=== PATIENT | male | born 1930 | race Caucasian/White ===

== ENCOUNTER → 2016-09-23 | Outpatient (CLI) | payer MEDICARE, OTHER ==
[~2016-09-23] MED LIST: AMLO5TAB2 PO; AMLO5TAB22 PO; CALC500T19 PO; CARV6.25 PO; CARV6.252 PO; GABA100C4 PO; LEVO.075 PO; MULTTAB23 PO; NEXI40CA PO; OMEG300C PO; PANT40TA3 PO; PRAV20 PO; PRAV40TA2 PO; PROB1TAB P-ARTICULR; SYNT75TA PO; TERA5 PO; TERA5CAP3 PO; VITA20003 PO
[2016-09-23 12:27] LABS: ALKALINE PHOSPHATASE 73 U/L (45-117); ALT (GPT) 16 U/L (12-78); ANION GAP 9 MEQ/L (5-15); AST (GOT) 8 U/L (15-37); BICARBONATE 27.6 MEQ/L (21.0-32.0); BLOOD UREA NITROGEN 17 MG/DL (7-18); CHLORIDE 104 MEQ/L (98-107); GLOMERULAR FILTRATION RATE 73 ML/MIN (>89); GLUCOSE,FASTING 126 MG/DL (74-99); LDL CHOLESTEROL 67 MG/DL (0-99); POTASSIUM 4.2 MEQ/L (3.5-5.1); SODIUM (NA) 141 MEQ/L (136-145); TOTAL BILIRUBIN ADULT 0.5 MG/DL (0.2-1.0)
[2016-09-23 12:41] LABS: CREATINE KINASE 43 U/L (39-308)
== END ==
LOC: ELAB 10:45
PROVIDERS: ATTEND Internal Medicine Interventional Cardiology
DX: R06.02 Shortness of breath (principal); E78.5 Hyperlipidemia, unspecified; Z79.899 Other long term (current) drug therapy; Z09 Encounter for follow-up examination after completed treatment for conditions other than malignant neoplasm
CPT/HCPCS: 36415; 80053; 80061; 82248; 82550

== ENCOUNTER → 2016-09-27 | Outpatient (CLI) | payer MEDICARE | LOC: ELAB 10:14 | PROVIDERS: ATTEND Urology | DX: Z85.46 Personal history of malignant neoplasm of prostate (principal) | CPT/HCPCS: 36415; 84153 ==

== ENCOUNTER 2016-10-08 16:38 | Emergency (ER) | payer MEDICARE, OTHER ==
[~2016-10-08] VITALS: Ht 172.7 cm; Wt 75.0 kg
[~2016-10-08 16:38] MED LIST changes: -AMLO5TAB2 PO; -CARV6.252 PO; -LEVO.075 PO; -PANT40TA3 PO; -PRAV40TA2 PO; -TERA5CAP3 PO
[2016-10-08 16:51] VITALS: BP 149/72; PULSE 61; RESP 16; TEMP 98.7; O2SAT 96
[2016-10-08] MEDS ORDERED: PRAV40TA2 PO (17:04)
[2016-10-08] MEDS ORDERED: AMLO5TAB2 PO (17:04)
[2016-10-08] MEDS ORDERED: CARV6.252 PO (17:04)
[2016-10-08] MEDS ORDERED: PANT40TA3 PO (17:04)
[2016-10-08] MEDS ORDERED: TERA5CAP3 PO (17:04)
[2016-10-08] MEDS ORDERED: LEVO.075 PO (17:04)
[2016-10-08] MEDS ORDERED: LIDOCAINE HCL 1% 50 ML VIAL INFIL ONE (17:15)
--- NOTE | 2016-10-08 17:21 | PD ---
HPI Chief Complaint: Fall Time Seen by Provider: 17:14 Travel History International Travel<30 days: No Contact w/Intl Traveler<30days: No Traveled to known affect area: No History of Present Illness HPI Patient is an 86-year-old male presenting with nose injury. Approximately one hour prior to exam the patient tripped over a sidewalk while on his daily walk with his . He fell forward and hit his nose on the sidewalk. He reports a laceration on the bridge and some mild pain. He has had small amount of bleeding at the left nostril. He denies any excessive bleeding or bleeding down the back of his throat. He is able to breathe out of both nostrils. He did not lose consciousness and denies headache, dizziness, nausea, vomiting, vision change, neck pain and weakness or paresthesias in his extremities. Anticoagulants but does take aspirin 81 mg daily. He denies any jaw or dental pain. 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) High Cholesterol: Yes Cerebrovascular Accident: No Coronary Artery Disease: Yes Diabetes: No Diminished Hearing: No GERD: Yes Headaches: Yes Hypertension: Yes Respiratory: No Immunizations Current: Yes Radiation Therapy: Yes (SEED IMPLANTS) Thyroid Disease: Yes Tetanus Vaccination: < 5 Years Influenza Vaccination: Yes Past Surgical History Appendectomy: Yes Coronary Artery Bypass Graft: Yes Coronary Stent: Yes Genitourinary Surgery: Yes Tonsillectomy: Yes Social History Alcohol Use: No Tobacco Use: No Substance Use: No Allergies-Medications (Allergen,Severity, Reaction): Coded Allergies: No Known Allergies (Unverified , 10/08/16) Reported Meds & Prescriptions Reported Meds & Active Scripts Active Reported Pantoprazole (Pantoprazole Sodium) 40 Mg Tab 40 Mg PO DAILY Pravastatin 40 Mg Tab 40 Mg PO DAILY Terazosin (Terazosin HCl) 5 Mg Cap 5 Mg PO HS Amlodipine (Amlodipine Besylate) 5 Mg Tab 5 Mg PO DAILY Carvedilol 6.25 Mg Tab 6.25 Mg PO BID Synthroid (Levothyroxine Sodium) 75 Mcg Tab 75 Mcg PO DAILY Review of Systems Except as stated in HPI: all other systems reviewed are Neg Physical Exam Narrative GENERAL: Well-developed and well-nourished adult male in no acute distress. SKIN: Warm and dry. Good turgor without tenting. HEAD: Normocephalic. The nose has 2 small lacerations, one approximately 6 mm and the other 3 mm small amount of venous oozing. No tissue avulsion but there is some abrasion superiorly. There is no significant edema or deformity of the nose, mildly tender to palpation without crepitus or step-offs. No pain with palpation of the bilateral maxilla, frontal bones and mandible. EYES: PERRL bilaterally, 4mm. EOMI bilaterally. No injection or icterus present. No proptosis. Lids without edema or erythema. ENT: Bilateral ear canals are non-edematous/non-erythematous without otorrhea. Bilateral TMs have intact landmarks and without hemotympanum, distortion, perforation, air-fluid level or erythema. Nasal mucosa pink and moist without discharge, septum intact and midline. Negative bilateral septal hematoma. Small amount of dried blood at the left external naris without any active bleeding. No visible blood throughout the nasal turbinates or septum. Bilateral nares are patent. Buccal mucosa pink and moist. Oropharynx free of erythema, tonsillar hypertrophy, masses, swelling, asymmetry and exudates. Uvula midline and airway patent. NECK: Supple, no midline tenderness, crepitus or step-offs. Trachea midline, no JVD. No cervical or facial lymphadenopathy. CARDIOVASCULAR: Regular rate and rhythm without murmurs, rubs, clicks or gallops. Radial and posterior tibial pulses 2+ bilaterally. No pedal edema. RESPIRATORY: Clear to auscultation bilaterally with symmetrical rise and fall, no distress or use of accessory muscles. MUSCULOSKELETAL: No gait disturbances. Patient freely moving all four extremities spontaneously. Extremities without clubbing, cyanosis, or edema. No obvious deformities. NEUROLOGIC: CN II-XII grossly intact. Awake and alert. Motor grossly within normal limits. Normal speech. PSYCHIATRIC: Appropriate mood and affect; insight and judgment normal. Data Data Last Documented VS Vital Signs Date Time Temp Pulse Resp B/P Pulse Ox O2 Delivery O2 Flow Rate FiO2 10/08/16 16:51 98.7 61 16 149/72 96 Orders Lidocaine 1% Inj (50 Ml) (Xylocaine 1% I (10/08/16 17:15) MDM Medical Decision Making Medical Screen Exam Complete: Yes Emergency Medical Condition: Yes Differential Diagnosis Nasal laceration versus nasal contusion versus nasal fracture versus intracranial hemorrhage versus basilar skull fracture versus cervical injury Narrative Course Patient is an 86-year-old male who suffered a trip and fall one hour prior to exam suffered 2 small lacerations on the ridge of his nose. Small amount of dried blood in the left naris that appeared to come from the mucosa. There is no septal hematoma or active bleeding. Neurologic exam is unremarkable and he has no neurologic complaints. Tetanus vaccine less than 5 years, up-to-date. Recommended CT of the facial bones, head and C-spine given the mechanism and the patient's age and aspirin use however he declined. I spent 5 minutes discussing with him and his that the risks of radiation, which was his concern, are minimal at his age and the benefits greatly outweigh the risk. They acknowledged their understanding and the patient still wishes to decline the testing. Informed him if he has any otorrhea, rhinorrhea, nasal bleeding, headache, dizziness, nausea, vomiting or vision changes to return immediately. Laceration repaired per attached procedure narrative.See discharge paperwork for further instructions. The plan was discussed with the patient who acknowledged their understanding and agreement. Reinforced the follow-up with primary care is critically important. Patient instructed on emergent conditions that should prompt return to ED. Procedures Procedure Narrative LACERATION A LOCATION: Nose LENGTH: 6 mm SHAPE: Linear NUMBER OF STITCHES/DONALD: 3 REPAIR: The area of the laceration was prepped with Betadine and sterilely draped. The laceration was infiltrated with 0.5 cc of 1% lidocaine. The wound was copiously irrigated and explored without evidence of foreign body, tendon injury or neurovascular injury. The wound was closed using 6-0 Prolene. This was a single layer repair. A sterile dressing was applied. The patient was advised to keep the dressing clean and dry. Patient tolerated the procedure well. LACERATION B LOCATION: Nose LENGTH: 4MM SHAPE: Linear NUMBER OF STITCHES/DONALD: 2 REPAIR: The area of the laceration was prepped with Betadine and sterilely draped. The laceration was infiltrated with 0.5 cc of 1% lidocaine. The wound was copiously irrigated and explored without evidence of foreign body, tendon injury or neurovascular injury. The wound was closed using 6-0 Prolene. This was a single layer repair. A sterile dressing was applied. The patient was advised to keep the dressing clean and dry. Patient tolerated the procedure well. Diagnosis Primary Impression: Nasal laceration Qualified Code: S01.21XA - Nasal laceration, initial encounter Additional Impression: Nasal contusion Patient Instructions: Facial Laceration (ED), General Instructions, Nasal Fracture (ED) Additional Instructions: Keep bandage on for 24 hours then change daily When changing bandage wash area with soap and water Avoid swimming or submerging wound in any water(bath, hadley, pool, ocean, etc) Take Tylenol or ibuprofen for pain Avoid blowing the nose, pressing on the nose or using a straw to drink Apply ice as needed for pain and swelling Follow-up with PCP in 3-5 days for suture removal Return to the ED for any acute worsening of symptoms including swelling, warmth , spreading redness, pustular drainage, fever, otorrhea, rhinorrhea, nasal bleeding, headache, dizziness, nausea, vomiting or vision changes Disposition: 01 DISCHARGE HOME Condition: Stable Eb cMdonald III Oct 08, 2016 17:20
== END 2016-10-08 18:11 | disposition home or self-care (01) ==
LOC: PHEFT 16:38
DX: S01.21XA Laceration without foreign body of nose, initial encounter (principal); S00.33XA Contusion of nose, initial encounter; E78.00 Pure hypercholesterolemia, unspecified; I25.10 Atherosclerotic heart disease of native coronary artery without angina pectoris; I10 Essential (primary) hypertension; W10.1XXA Fall (on)(from) sidewalk curb, initial encounter; Y93.9 Activity, unspecified; Y92.9 Unspecified place or not applicable; Y99.9 Unspecified external cause status; Z79.82 Long term (current) use of aspirin
CPT/HCPCS: 12011

== ENCOUNTER 2016-10-13 10:49 | Emergency (ER) | payer MEDICARE, OTHER ==
[~2016-10-13] VITALS: Ht 175.3 cm; Wt 75.0 kg
[~2016-10-13 10:49] MED LIST changes: +AMLO5TAB2 PO; -AMLO5TAB22 PO; -CALC500T19 PO; -CARV6.25 PO; +CARV6.252 PO; -GABA100C4 PO; +LEVO.075 PO; -MULTTAB23 PO; -NEXI40CA PO; -OMEG300C PO; +PANT40TA3 PO; -PRAV20 PO; +PRAV40TA2 PO; -PROB1TAB P-ARTICULR; -SYNT75TA PO; -TERA5 PO; +TERA5CAP3 PO; -VITA20003 PO
[2016-10-13 10:53] VITALS: BP 145/60; PULSE 61; RESP 16; TEMP 97.8; O2SAT 99
--- NOTE | 2016-10-13 11:13 | PD ---
HPI Chief Complaint: Wound/Suture/Staple Re-Check Time Seen by Provider: 11:12 Travel History International Travel<30 days: No Contact w/Intl Traveler<30days: No Traveled to known affect area: No History of Present Illness HPI Patient is an 86-year-old male who presented to emergency to have his stitches removed. Stitches were placed on 10/08/16 after trip and fall resulting in a laceration to the bridge of his nose. Patient denies any issues in the interim. PFSH Past Medical History Hx Anticoagulant Therapy: Yes (81 MG. 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) High Cholesterol: Yes Cerebrovascular Accident: No Coronary Artery Disease: Yes Diabetes: No Diminished Hearing: No GERD: Yes Headaches: Yes Hypertension: Yes Respiratory: No Immunizations Current: Yes Radiation Therapy: Yes (SEED IMPLANTS) Thyroid Disease: Yes Tetanus Vaccination: < 5 Years Influenza Vaccination: Yes Past Surgical History Appendectomy: Yes Coronary Artery Bypass Graft: Yes Coronary Stent: Yes Genitourinary Surgery: Yes Tonsillectomy: Yes Social History Alcohol Use: No Tobacco Use: No Substance Use: No Allergies-Medications (Allergen,Severity, Reaction): Coded Allergies: No Known Allergies (Unverified , 10/13/16) Reported Meds & Prescriptions Reported Meds & Active Scripts Active Reported Pantoprazole (Pantoprazole Sodium) 40 Mg Tab 40 Mg PO DAILY Pravastatin 40 Mg Tab 40 Mg PO DAILY Terazosin (Terazosin HCl) 5 Mg Cap 5 Mg PO HS Amlodipine (Amlodipine Besylate) 5 Mg Tab 5 Mg PO DAILY Carvedilol 6.25 Mg Tab 6.25 Mg PO BID Synthroid (Levothyroxine Sodium) 75 Mcg Tab 75 Mcg PO DAILY Review of Systems Except as stated in HPI: all other systems reviewed are Neg Physical Exam Narrative GENERAL: Well-nourished, well-developed patient. SKIN: Warm and dry. 5 intact sutures noted to the bridge of the nose, wound healing well without sign or symptoms of infection. Stitches are well approximated. HEAD: Normocephalic. EYES: No scleral icterus. No injection or drainage. NECK: Supple, trachea midline. No JVD or lymphadenopathy. CARDIOVASCULAR: Regular rate and rhythm without murmurs, gallops, or rubs. RESPIRATORY: Breath sounds equal bilaterally. No accessory muscle use. GASTROINTESTINAL: Abdomen soft, non-tender, nondistended. MUSCULOSKELETAL: No cyanosis, or edema. BACK: Nontender without obvious deformity. No CVA tenderness. Data Data Last Documented VS Vital Signs Date Time Temp Pulse Resp B/P Pulse Ox O2 Delivery O2 Flow Rate FiO2 10/13/16 11:01 80 16 10/13/16 10:53 97.8 145/60 99 [facility] Medical Decision Making Medical Screen Exam Complete: Yes Emergency Medical Condition: Yes Interpretation(s) Vital Signs Date Time Temp Pulse Resp B/P Pulse Ox O2 Delivery O2 Flow Rate FiO2 10/13/16 11:01 80 16 10/13/16 10:53 97.8 61 16 145/60 99 Differential Diagnosis Cellulitis versus wound dehiscence versus normal wound healing versus other Narrative Course Patient's an 86-year-old male who presented to emergency department for removal of sutures. Wound is healing well without sign or symptoms of infection. 5 intact sutures noted to the bridge of the nose and removed without difficulty. Patient encouraged to apply topical antibiotic ointment to the bridge of nose. After is completely healed he was encouraged to apply sunscreen to avoid hyperpigmentation or scarring. Patient verbalized understanding of these instructions. Patient is stable for discharge. Diagnosis Primary Impression: Visit for suture removal Referrals: Primary Care Physician Patient Instructions: General Instructions Additional Instructions: Follow-up with her primary doctor May apply topical antibiotic ointment to the bridge of her nose. After wound is completely healed apply sunscreen to avoid scarring Return to the emergency department for any new or worsening symptoms Med/Other Pt SpecificInfo: No Change to Meds Disposition: 01 DISCHARGE HOME Condition: Stable Jenifer Leon Oct 13, 2016 11:13
== END 2016-10-13 11:38 | disposition home or self-care (01) ==
LOC: PHEFT 10:49
DX: Z48.02 Encounter for removal of sutures (principal)
CPT/HCPCS: 99281

== ENCOUNTER 2017-08-28 11:04 | Emergency (ER) | payer MEDICARE, OTHER ==
[~2017-08-28] VITALS: Ht 170.2 cm; Wt 74.0 kg
[2017-08-28 11:08] VITALS: BP 149/68; PULSE 62; RESP 18; TEMP 97.5; O2SAT 96
--- NOTE | 2017-08-28 11:35 | PD ---
HPI Chief Complaint: Headache Time Seen by Provider: 11:19 Travel History International Travel<30 days: No Contact w/Intl Traveler<30days: No Traveled to known affect area: No History of Present Illness HPI This patient complains of headache. Location is left sided headache starting at the jawline and runs up past the ear to the central forehead and around to the other side. Duration is 7 days. It's been constant. He falls asleep with it but that is there when he wakes up. No injury. No fever. He takes a baby aspirin daily but no other blood thinners. No thunderclap onset. No neurologic deficit. No alleviating factors. No exacerbating factors. Severity is mild to moderate PFSH Past Medical History Hx Anticoagulant Therapy: Yes (81 MG. 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) High Cholesterol: Yes Cerebrovascular Accident: No Coronary Artery Disease: Yes Diabetes: No Diminished Hearing: No GERD: Yes Headaches: Yes Hypertension: Yes Respiratory: No Immunizations Current: Yes Radiation Therapy: Yes (SEED IMPLANTS) Thyroid Disease: Yes Tetanus Vaccination: < 5 Years Influenza Vaccination: Yes Past Surgical History Appendectomy: Yes Coronary Artery Bypass Graft: Yes Coronary Stent: Yes Genitourinary Surgery: Yes Tonsillectomy: Yes Social History Alcohol Use: No Tobacco Use: No Substance Use: No Allergies-Medications (Allergen,Severity, Reaction): Coded Allergies: No Known Allergies (Unverified Adverse Reaction, Unknown, 08/28/17) Reported Meds & Prescriptions Reported Meds & Active Scripts Active Reported Pantoprazole (Pantoprazole Sodium) 40 Mg Tab 40 Mg PO DAILY Pravastatin 40 Mg Tab 40 Mg PO DAILY Terazosin (Terazosin HCl) 5 Mg Cap 5 Mg PO HS Amlodipine (Amlodipine Besylate) 5 Mg Tab 5 Mg PO DAILY Carvedilol 6.25 Mg Tab 6.25 Mg PO BID Synthroid (Levothyroxine Sodium) 75 Mcg Tab 75 Mcg PO DAILY Review of Systems General / Constitutional: No: Fever Eyes: No: Visual changes HENT: Positive: Headaches Cardiovascular: No: Chest Pain or Discomfort Respiratory: No: Shortness of Breath Gastrointestinal: No: Abdominal Pain Genitourinary: No: Dysuria Musculoskeletal: No: Pain Skin: No Rash Neurologic: Positive: Headache, No: Weakness Psychiatric: No: Depression Endocrine: No: Polydipsia Hematologic/Lymphatic: No: Easy Bruising Physical Exam Narrative GENERAL: Well-nourished, well-developed patient in no apparent distress. SKIN: Focused skin assessment reveals no rash and nodules. Skin is Warm and dry. HEAD: Atraumatic. Normocephalic. EYES: Pupils equal and round. No scleral icterus. No injection or drainage. ENT: No nasal bleeding or discharge. Mucous membranes pink and moist. NECK: Trachea midline. No JVD. No meningeal signs CARDIOVASCULAR: Regular rate and rhythm. No murmur appreciated. RESPIRATORY: No accessory muscle use. Clear to auscultation. Breath sounds equal bilaterally. GASTROINTESTINAL: Abdomen soft, non-tender, nondistended. Hepatic and splenic margins not palpable. MUSCULOSKELETAL: No obvious deformities. No clubbing. No cyanosis. No edema. NEUROLOGICAL: Awake and alert. No obvious cranial nerve deficits. Motor grossly within normal limits. Normal speech. PSYCHIATRIC: Appropriate mood and affect; insight and judgment normal. Data Data Last Documented VS Vital Signs Date Time Temp Pulse Resp B/P (MAP) Pulse Ox O2 Delivery O2 Flow Rate FiO2 08/28/17 11:24 20 08/28/17 11:08 97.5 62 149/68 (95) [address] Brain W/O Iv Contrast(Rout) (08/28/17 ) [facility] Medical Decision Making Medical Screen Exam Complete: Yes Emergency Medical Condition: Yes Medical Record Reviewed: Yes Differential Diagnosis Differential diagnosis includes migraine, tension headache, cluster headache, meningitis. Narrative Course I have reviewed the patient's electronic medical record. Patient was here 2 months ago for headache and had negative brain CT at that time Patient's neurologically intact. 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 I wrote him 10 tramadol and warned him about potential sedation The patient was advised to follow up with their physician and return if they worsen. Diagnosis Primary Impression: Headache Qualified Codes: R51 - Headache Additional Instructions: The patient was advised to follow up with their physician and return if they worsen. The patient was warned about potential sedation for the medications they will receive on prescription. Med/Other Pt SpecificInfo: Prescription(s) given Scripts Tramadol (Tramadol) 50 Mg Tab 50 MG PO Q6H Y for PAIN, #10 TAB 0 Refills Prov: Donovan Rodriguez MD 08/28/17 Disposition: 01 DISCHARGE HOME Condition: Stable Donovan Rodriguez MD Aug 28, 2017 11:35
--- NOTE | 2017-08-28 11:44 | RADRPT ---
EXAM DATE/TIME: 08/28/2017 11:32 [facility] COMPARISON: CT BRAIN W/O CONTRAST, December 05, 2015, 12:04. INDICATIONS : Cephalgia x 1 week. RADIATION DOSE: 63.18 CTDIvol (mGy) MEDICAL HISTORY : Carcinoma, prostate. Cardiovascular disease Hypertension. SURGICAL HISTORY : CABG Coronary artery stent.Appendectomy. ENCOUNTER: Initial ACUITY: 1 week PAIN SCALE: 8/10 LOCATION: cranial TECHNIQUE: Multiple contiguous axial images were obtained of the head. Using automated exposure control and adj ustment of the mA and/or kV according to patient size, radiation dose was kept as low as reasonably a chievable to obtain optimal diagnostic quality images. DICOM format image data is available electro nically for review and comparison. FINDINGS: CEREBRUM: The ventricles are normal for age. No evidence of midline shift, mass lesion, hemorrhage or acute in farction. No extra-axial fluid collections are seen. POSTERIOR FOSSA: The cerebellum and brainstem are intact. The 4th ventricle is midline. The cerebellopontine angle i s unremarkable. EXTRACRANIAL: The visualized portion of the orbits is intact. SKULL: The calvaria is intact. No evidence of skull fracture. CONCLUSION: Normal examination. George Villarreal MD on August 28, 2017 at 11:42 Board Certified Radiologist. This report was verified electronically.
[2017-08-28] MEDS ORDERED: TRAM50TA PO (12:54)
== END 2017-08-28 13:09 | disposition home or self-care (01) ==
LOC: PHED 11:04
DX: R51 Headache (principal); K21.9 Gastro-esophageal reflux disease without esophagitis; I10 Essential (primary) hypertension; E78.00 Pure hypercholesterolemia, unspecified; I25.10 Atherosclerotic heart disease of native coronary artery without angina pectoris; Z95.1 Presence of aortocoronary bypass graft; Z95.5 Presence of coronary angioplasty implant and graft; Z79.82 Long term (current) use of aspirin; Z85.46 Personal history of malignant neoplasm of prostate
CPT/HCPCS: 70450; 99284

== ENCOUNTER → 2017-09-16 | Outpatient (CLI) | payer MEDICARE, OTHER ==
[~2017-09-16] MED LIST changes: +TRAM50TA PO
[2017-09-16 12:16] LABS: ALBUMIN 3.8 GM/DL (3.4-5.0); AST (GOT) 13 U/L (15-37); BICARBONATE 27.8 MEQ/L (21.0-32.0); BLOOD UREA NITROGEN 15 MG/DL (7-18); CALCIUM 8.8 MG/DL (8.5-10.1); CHLORIDE 105 MEQ/L (98-107); CREATININE 1.05 MG/DL (0.60-1.30); GLOMERULAR FILTRATION RATE 67 ML/MIN (>89); GLUCOSE,FASTING 116 MG/DL (74-99); SODIUM (NA) 139 MEQ/L (136-145)
[2017-09-16 12:17] LABS: ALT (GPT) 19 U/L (12-78); CHOLESTEROL 130 MG/DL (120-200); DIRECT BILIRUBIN ADULT 0.2 MG/DL (0.0-0.2)
[2017-09-16 12:20] LABS: ALKALINE PHOSPHATASE 69 U/L (45-117); CHOLESTEROL/ HDL RATIO 2.58 RATIO; HDL CHOLESTEROL 50.3 MG/DL (40.0-60.0); LDL CHOLESTEROL 63 MG/DL (0-99); LDL CHOLESTEROL DIRECT 74 MG/DL (0-99); TOTAL BILIRUBIN ADULT 0.6 MG/DL (0.2-1.0); TOTAL PROTEIN 7.3 GM/DL (6.4-8.2); TRIGLYCERIDES 85 MG/DL (42-150)
== END ==
LOC: ELAB 08:31
PROVIDERS: ATTEND Internal Medicine Interventional Cardiology
DX: I25.10 Atherosclerotic heart disease of native coronary artery without angina pectoris (principal); E78.5 Hyperlipidemia, unspecified; I10 Essential (primary) hypertension; Z79.899 Other long term (current) drug therapy
CPT/HCPCS: 36415; 80053; 80061; 82248; 82550; 83721

== ENCOUNTER → 2017-10-06 | Outpatient (CLI) | payer MEDICARE, OTHER | LOC: ELAB 09:39 | PROVIDERS: ATTEND Urology | DX: Z85.46 Personal history of malignant neoplasm of prostate (principal) | CPT/HCPCS: 36415; 84153 ==